=== PATIENT | male | born 1990 | race Caucasian/White ===

== ENCOUNTER 2016-11-29 20:06 | Emergency (ER) | payer SELFPAY ==
[2016-11-29 20:19] VITALS: BMI 45.8
--- NOTE | 2016-11-29 21:24 | DR.GENAD ---
HPI - PCP Primary Care Physician: NFD - Complaint/Symptoms Chief Complaint Doctors Comments: Patient complains of left foot and leg pain with wart at the bottom of his foot that he tried to cut out but it came back worst than the first time. States he has been having problems walking due to the pain in his foot. States he has been feeling dizzy, fatigue, no energy, with problems walking on his left foot. He denies fever, chills, cold, cough or chest pain. States he does not have a local doctor and he is not taking any current medicines. states his left leg has been swelling more recently and he think it is from his foot. Chief Complaint:: LEFT FOOT PAIN LEFT LEG STAYS SWOLLEN PATIENT STATES, " PEOPLE SAY IT COULD BE A SEED WART OR PLANTAR WART." PATIENT STATED," I PULLED ONE OUT ALREADY." Self Treatment fo Chief Complaint: PULLED ONE WART OUT. TRIED A FREEZE KIT, TYLENOL FOR PAIN - Nurses notes reviewed Nurses Notes Review: Yes - Source History Provided: Patient - Mode of Arrival Mode of Arrival: Ambulatory - Timing Onset of Chief Complaint: 10/09/16 Came on: Gradually - Duration Duration: Constant How lon Duration: Weeks - Location Location: left foot - Severity Severity: Moderate - Modifying Factors Worsens:: walking Improves:: nothing PMH - PMH Past Medical History: No Past Surgical History: Yes Surgical History: Ortho Surgery - Family History History of Family Medical Conditions: Yes Family Medical History: Diabetes Mellitus, Cancer, [place], Heart Failure, Hypertension Family Medical History Comment: CVA - Social History Does patient currently use any type of tobacco product: Yes Have you used tobacco products in the last 12 months: Yes Type of Tobacco Use: None Does any household member use tobacco: No Alcohol Use: Occasionally Do you use any recreational Drugs:: No Lives With: Significant Other Lives Where: Home - infectious screening In the last 2 months have you had wt loss of >10#?: NO Have you had fever, night sweats or hemotysis?: No Have you traveled outside the country in the last 6 months?: No Isolation: Standard ROS - Review of Systems Constitutional: No Symptoms Reported, Weakness, Fatigue. negative: See HPI, Chills, Diaphoresis, Fever, Malaise, Irritable, Loss of Appetite, Other Eyes: No Symptoms Reported. negative: See HPI, Eye Pain, Blurred Vision, Tearing, Discharge, Photophobia, Diplopia, Other ENTM: No Symptoms Reported Respiratoy: No Symptoms Reported Cardiovascular: No Symptoms Reported. negative: See HPI, Chest Pain, Edema, Palpitations, Syncope, Cyanosis, Skin Mottling, Other Gastrointestinal/Abdominal: No Symptoms Reported. negative: See HPI, Abdominal Pain, Constipation, Diarrhea, Nausea, Vomiting, Food Intolerance, Other Genitourinary: No Symptoms Reported Neurological: No Symptoms Reported, Dizziness, Problems Walking Musculoskeletal: No Symptoms Reported, Left, Foot Integumentary: No Symptoms Reported, Lesions (warts bottom left foot) Hematologic/Lymphatic: No Symptoms Reported Endocrine: No Symptoms Reported Psychiatric: No Symptoms Reported PE - Vital Signs Vitals: Temperature 97.7 F Pulse Rate 94 Respiratory Rate 18 Blood Pressure 172/88 O2 Sat by Pulse Oximetry 99 - General Limitations: No Limitations General Appearance: Alert, In No Apparent Distress - Head Head Exam: Normal Inspection, Atraumatic, Normocephalic - Eyes Eye exam: Normal Appearance, PERRL, EOMI. negative: Scleral Icterus, Conjunctival Injection, Nystagmus, Miosis, Mydrasis, Periorbital Swelling, Periorbital Tenderness, Other - ENT ENT Exam: Normal Exam, Normal Oropharynx, Normal External Ear Exam, Mucous Membranes Moist, TM's Normal Bilaterally External Ear Exam: Normal External Inspection TM/Canal Exam: Bilateral Normal Nose Exam: Normal Nose Exam Mouth Exam: Normal Inspection Throat Exam: Normal Inspection - Neck Neck Exam: Normal Inspection, Full ROM, Trachea Midline. negative: Tenderness, Meningismus, Lymphadenopathy, Thyromegaly, Other - Chest Chest Inspection: Normal Inspection, Symmetric Chest Wall Rise - Respiratory Respiratory Exam: Normal Lung Sounds Bilat Respiratory Exam: Bilateral Clear to Auscultation - Cardiovascular Cardiovascular Exam: Regular Rate, Normal Rhythm, Normal Heart Sounds - Abdominal Exam Abdominal Exam: Normal Inspection, Normal Bowel Sounds, Soft Abdominal Tenderness: negative: RUQ, RLQ, LUQ, LLQ, Epigastrium, Suprapubic, Diffuse, Mild, Moderate, Severe, Other - Extremities Extremities Exam: Normal Inspection, Full ROM, Tenderness, Normal Capillary Refill. negative: Joint Swelling (left foot with two small warts plantar surface proximal heel;no erythema or discharge) - Back Back Exam: Normal Inspection, Full ROM - Neurologic Neurological Exam: Alert, Oriented X3, CN II-XII Intact, Reflexes Normal. negative: Normal Gait (gait not tested) - Psychiatric Psychiatric Exam: Normal Affect, Normal Mood - Skin Skin Exam: Warm, Dry, Intact, Normal Color ROR - Labs Reviewed Laboratory Results Reviewed?: Yes (all labs and x-ray results reviewed and discussed with patient) Result Diagrams: 11/29/16 21:20 11/29/16 21:20 Laboratory: WBC 8.3 X10^3/uL (3.6-10.0) 11/29/16 21:20 RBC 5.42 X10^6/uL (4.7-6.0) 11/29/16 21:20 Hgb 16.2 g/dL (13.5-18.0) 11/29/16 21:20 Hct 46.5 % (42.0-54.0) 11/29/16 21:20 MCV 85.9 fL (80.0-100.0) 11/29/16 21:20 MCH 29.9 pg (27.0-34.0) 11/29/16 21:20 MCHC 34.8 g/dL (33.0-35.0) 11/29/16 21:20 RDW 12.9 % (11.6-16.5) 11/29/16 21:20 Plt Count 195 X10^3/uL (150.0-450.0) 11/29/16 21:20 MPV 9.3 fL (7.4-11.0) 11/29/16 21:20 Neut % 67.7 % (42.0-75.0) 11/29/16 21:20 Lymph % 25.8 % (21.0-51.0) 11/29/16 21:20 [place] % 4.0 % (0.0-13.0) 11/29/16 21:20 Eos % 1.3 % (0.9-2.9) 11/29/16 21:20 Baso % 1.2 % (0.2-1.0) H 11/29/16 21:20 Neut # 5.6 x10^3/uL (2.2-4.8) H 11/29/16 21:20 Lymph # 2.1 X10^3/uL (1.3-2.9) 11/29/16 21:20 [place] # 0.3 x10^3/uL (0.3-0.8) 11/29/16 21:20 Eos # 0.1 x10^3/uL (0.0-0.2) 11/29/16 21:20 Baso # 0.1 X10^3/uL (0.0-0.1) 11/29/16 21:20 Absolute Nucleated RBC 0.1 /100WBC 11/29/16 21:20 D-Dimer < 100 ng/mL (0-400) 11/29/16 21:20 Sodium 139 mmol/L (136-145) 11/29/16 21:20 Corrected Sodium TNP 11/29/16 21:20 Potassium 3.9 mmol/L (3.5-5.1) 11/29/16 21:20 Chloride 104 mmol/L (98-107) 11/29/16 21:20 Carbon Dioxide 27.7 mmol/L (21-32) 11/29/16 21:20 BUN 14 mg/dL (7-18) 11/29/16 21:20 Creatinine 1.20 mg/dL (0.70-1.30) 11/29/16 21:20 Est GFR (MDRD) Af Amer > 60 (>60) 11/29/16 21:20 Est GFR (MDRD) Non-Af > 60 (>60) 11/29/16 21:20 Glucose 96 mg/dL (65-99) 11/29/16 21:20 Calcium 8.8 mg/dL (8.5-10.1) 11/29/16 21:20 Corrected Calcium TNP 11/29/16 21:20 Magnesium 1.7 mg/dL (1.7-2.9) 11/29/16 21:20 Total Bilirubin 0.30 mg/dL (0.2-1.0) 11/29/16 21:20 AST 24 Units/L (15-37) 11/29/16 21:20 ALT 54 Units/L (12-78) 11/29/16 21:20 Alkaline Phosphatase 78 Units/L (46-116) 11/29/16 21:20 Total Protein 7.8 g/dL (6.4-8.2) 11/29/16 21:20 Albumin 4.0 g/dL (3.4-5.0) 11/29/16 21:20 Globulin 3.8 g/dL (2.5-4.5) 11/29/16 21:20 Albumin/Globulin Ratio 1.1 Ratio (1.1-2.1) 11/29/16 21:20 - XRAY XRAY Interpreted by: Radiologist (left foot: Normal left foot x-ray exam.) - Diagnosis Discharge Problem: Left foot pain, Plantar wart of left foot, early cellulitis of foot - Discharge Plan Disposition: 01 HOME, SELF-CARE Condition: Stable Prescriptions: Cephalexin [KEFLEX CAP 500 MG *] 500 mg PO TID #30 cap Tramadol HCl [ULTRAM 50 MG *] 50 mg PO BID PRN #18 tab PRN Reason: Pain - Follow ups/Referrals Follow ups/Referrals: NFD,None [Primary Care Provider] - 3 days BRIGITTE RODRIGUEZ [STAFF PHYSICIAN] - 3 days - Instructions Instructions: Plantar Warts, Foot Sprain, Hypertension, Cellulitis
[2016-11-29 22:01] LABS: BASOPHILS # (AUTO) 0.1 X10^3/uL (0.0-0.1); BASOPHILS % (AUTO) 1.2 % (0.2-1.0); EOSINOPHILS # (AUTO) 0.1 x10^3/uL (0.0-0.2); EOSINOPHILS % (AUTO) 1.3 % (0.9-2.9); HEMATOCRIT 46.5 % (42.0-54.0); HEMOGLOBIN 16.2 g/dL (13.5-18.0); LYMPHOCYTES # (AUTO) 2.1 X10^3/uL (1.3-2.9); LYMPHOCYTES % (AUTO) 25.8 % (21.0-51.0); MEAN CORPUSCULAR HEMOGLOBIN 29.9 pg (27.0-34.0); MEAN CORPUSCULAR HGB CONC 34.8 g/dL (33.0-35.0); MEAN CORPUSCULAR VOLUME 85.9 fL (80.0-100.0); MEAN PLATELET VOLUME 9.3 fL (7.4-11.0); MONOCYTES # (AUTO) 0.3 x10^3/uL (0.3-0.8); NEUTROPHILS # (AUTO) 5.6 x10^3/uL (2.2-4.8); NEUTROPHILS % (AUTO) 67.7 % (42.0-75.0); PLATELET COUNT 195 X10^3/uL (150.0-450.0); RED BLOOD COUNT 5.42 X10^6/uL (4.7-6.0); RED CELL DISTRIBUTION WIDTH 12.9 % (11.6-16.5); WHITE BLOOD COUNT 8.3 X10^3/uL (3.6-10.0)
[2016-11-29 22:03] LABS: ALANINE AMINOTRANSFERASE 54 Units/L (12-78); ALKALINE PHOSPHATASE 78 Units/L (46-116); ASPARTATE AMINO TRANSFERASE 24 Units/L (15-37); BLOOD UREA NITROGEN 14 mg/dL (7-18); CALCIUM 8.8 mg/dL (8.5-10.1); CARBON DIOXIDE 27.7 mmol/L (21-32); CHLORIDE 104 mmol/L (98-107); GLUCOSE 96 mg/dL (65-99); MAGNESIUM 1.7 mg/dL (1.7-2.9); SODIUM 139 mmol/L (136-145); TOTAL PROTEIN 7.8 g/dL (6.4-8.2); eGFR BLACK RACES > 60 (>60); eGFR NON BLACK RACES > 60 (>60)
--- NOTE | 2016-11-29 22:06 | RAD ---
EXAM: Left foot x-ray INDICATION: Pain COMPARISION: None TECHNIQUE: AP, lateral, and oblique, three views FINDINGS: No acute fracture or dislocation. The joint spaces are preserved. The soft tissues are normal. No ra diopaque foreign body. IMPRESSION: Normal left foot x-ray exam Reported By:
[2016-11-29 22:07] LABS: D DIMER < 100 ng/mL (0-400)
[2016-11-29] MEDS ORDERED: ULTRAM PO ONE (22:38)
[2016-11-29] MEDS ORDERED: KEFLEX CAP 500 MG PO ONE ×3 (22:39→22:43)
[2016-11-29] MEDS ORDERED: ULTRAM ONE (22:43)
[2016-11-29 23:29] VITALS: BP 141/94
== END 2016-11-29 23:26 | disposition home or self-care (01) ==
LOC: ER 20:06
DX: L03.116 Cellulitis of left lower limb (principal); B07.0 Plantar wart; M79.672 Pain in left foot
CPT/HCPCS: 36415; 73630; 80053; 83735; 85025; 85378; 99283

== ENCOUNTER 2017-08-09 18:24 | Observation (INO) | payer SELFPAY ==
[2017-08-09 18:41] VITALS: BMI 50.0
--- NOTE | 2017-08-09 18:48 | DR.ABDMALE ---
HPI - Time seen Time seen: 18:44 - Complaint Chief Complaint Doctors Comments: Patient presented with complaint of abdominal pain, vomiting and rectal bleeding. He states that these symptoms have been ongoing for two days. The abdominal pain is 10/10, sharp and continuous since 0500. Chief Complaint:: PT TO [facility] ER AND PT C/O PASSING BLOOD IN HIS STOOL THAT IS BRIGHT RED THAT STARTED ON ,,,, AND ABD PAIN,,,THIS AM PT HAS A HX HEMEROIDS ,,,, - Mode of arrival Mode of Arrival: EMS - Timing Onset of Chief Complaint: 08/09/17 PMH - PMH Past Medical History: No Past Surgical History: No Surgical History: Ortho Surgery - Family History History of Family Medical Conditions: No Family Medical History: Diabetes Mellitus, Cancer, [place], Heart Failure, Hypertension - Social History Does patient currently use any type of tobacco product: No Have you used tobacco products in the last 12 months: No Type of Tobacco Use: None Does any household member use tobacco: No Alcohol Use: None Do you use any recreational Drugs:: No Lives With: Family Lives Where: Home - infectious screening In the last 2 months have you had wt loss of >10#?: NO Have you had fever, night sweats or hemotysis?: No Have you traveled outside the country in the last 6 months?: No Isolation: Standard ROS - Review of Systems Eyes: No Symptoms Reported ENTM: No Symptoms Reported Respiratoy: No Symptoms Reported Cardiovascular: No Symptoms Reported Gastrointestinal/Abdominal: Abdominal Pain, Nausea, Vomiting Genitourinary: No Symptoms Reported Neurological: No Symptoms Reported Musculoskeletal: No Symptoms Reported Integumentary: No Symptoms Reported Hematologic/Lymphatic: No Symptoms Reported Endocrine: No Symptoms Reported Psychiatric: No Symptoms Reported All Other Systems: Reviewed and Negative PE - Vital Signs Vital Signs: Temp Pulse Resp BP BP Pulse Ox 08/09/17 18:30 98.9 F 80 20 140/91 99 11/29/16 23:05 141/94 141/94 - General General Appearance: Alert, In No Apparent Distress - Head Head Exam: Normal Inspection, Atraumatic - Eyes Eye exam: Normal Appearance, PERRL, EOMI - ENT ENT Exam: Normal Exam - Neck Neck Exam: Normal Inspection, Full ROM - Chest Chest Inspection: Normal Inspection, Symmetric Chest Wall Rise - Respiratory Respiratory Exam: Normal Lung Sounds Bilat Respiratory Exam: Bilateral Clear to Auscultation - Cardiovascular Cardiovascular Exam: Regular Rate, Normal Rhythm - Abdominal Exam Abdominal Exam: Normal Inspection, Tenderness, Dimnished Bowel Sounds Abdominal Tenderness: RLQ - Rectal Rectal Exam: Heme (+) Stool - Back Back Exam: Normal Inspection - Extremeties Extremities Exam: Normal Inspection, Full ROM - Neurologic Neurological Exam: Alert, Oriented X3, CN II-XII Intact - Psychiatric Psychiatric Exam: Normal Affect - Skin Skin Exam: Warm, Dry Course - Treatment Treatment: see orders - Reevaluation 1st: Improved - Consultation Called: 23:25 (Dr Henderson agreed to consult on patient) ROR - Labs Reviewed Result Diagrams: 08/09/17 19:01 08/09/17 19: Laboratory: WBC 17.0 X10^3/uL (3.6-10.0) H 08/09/17 19: RBC 5.24 X10^6/uL (4.7-6.0) 08/09/17 19: Hgb 15.8 g/dL (13.5-18.0) 08/09/17 19: Hct 45.9 % (42.0-54.0) 08/09/17 19: MCV 87.5 fL (80.0-100.0) 08/09/17 19: MCH 30.2 pg (27.0-34.0) 08/09/17 19: MCHC 34.5 g/dL (33.0-35.0) 08/09/17 19: RDW 12.5 % (11.6-16.5) 08/09/17 19: Plt Count 204 X10^3/uL (150.0-450.0) 08/09/17 19: Plt Count Comment Adequate (ADEQUATE) 08/09/17 19: MPV 10.0 fL (7.4-11.0) 08/09/17 19: Neut % 90.6 % (42.0-75.0) H 08/09/17 19: Lymph % 6.6 % (21.0-51.0) L 08/09/17 19: [place] % 2.6 % (0.0-13.0) 08/09/17 19: Eos % 0.1 % (0.9-2.9) L 08/09/17 19:01 Baso % 0.1 % (0.2-1.0) L 08/09/17 19: Neut # 15.4 x10^3/uL (2.2-4.8) H 08/09/17 19:01 Lymph # 1.1 X10^3/uL (1.3-2.9) L 08/09/17 19:01 [place] # 0.5 x10^3/uL (0.3-0.8) 08/09/17 19: Eos # 0.0 x10^3/uL (0.0-0.2) 08/09/17 19:01 Baso # 0.0 X10^3/uL (0.0-0.1) 08/09/17 19: Absolute Nucleated RBC 0.2 /100WBC 08/09/17 19: Total Counted 100 08/09/17 19:01 Neutrophils % (Manual) 78 % (39-76) H 08/09/17 19: Band Neutrophils % 14 % (0-10) H 08/09/17 19: Lymphocytes % (Manual) 5 % (13-43) L 08/09/17 19:01 Monocytes % (Manual) 3 % (4-9) L 08/09/17 19:01 Plt Morphology Comment Normal (NORMAL) 08/09/17 19: RBC Morphology Normal (NORMAL) 08/09/17 19: Sodium 138 mmol/L (136-145) 08/09/17 19: Corrected Sodium 138 mmol/L (136-145) 08/09/17 19: Potassium 3.6 mmol/L (3.5-5.1) 08/09/17 19: Chloride 100 mmol/L (98-107) 08/09/17 19: Carbon Dioxide 23.6 mmol/L (21-32) 08/09/17 19: BUN 10 mg/dL (7-18) 08/09/17 19: Creatinine 0.83 mg/dL (0.70-1.30) 08/09/17 19:01 Est GFR (MDRD) Af Amer > 60 (>60) 08/09/17 19: Est GFR (MDRD) Non-Af > 60 (>60) 08/09/17 19: Glucose 117 mg/dL (65-99) H 08/09/17 19:01 Calcium 9.2 mg/dL (8.5-10.1) 08/09/17 19: Corrected Calcium TNP 08/09/17 19: Total Bilirubin 0.60 mg/dL (0.2-1.0) 08/09/17 19:01 AST 26 Units/L (15-37) 08/09/17 19: ALT 60 Units/L (12-78) 08/09/17 19:01 Alkaline Phosphatase 67 Units/L (46-116) 08/09/17 19:01 C-Reactive Protein 7.30 mg/L (0-3.0) H 08/09/17 19: Total Protein 7.8 g/dL (6.4-8.2) 08/09/17 19: Albumin 3.9 g/dL (3.4-5.0) 08/09/17 19: Globulin 3.9 g/dL (2.5-4.5) 08/09/17 19: Albumin/Globulin Ratio 1.0 Ratio (1.1-2.1) L 08/09/17 19:01 Amylase 41 Units/L (25-115) 08/09/17 19: Lipase 128 Units/L (73-393) 08/09/17 19:01 Stool Description Ifob collection tube 08/09/17 18:51 Stl Occult Blood (IFOB) Positive (NEGATIVE) A 08/09/17 18:51 Stool for White Cells Cancelled 08/09/17 18:51 - XRAY XRAY Interpreted by: Radiologist (CT Abd/Pel: The liver is diffusely hypoattenuating, compatible with fatty infiltration. The gallbladder, spleen, pancreas,adrenals and kidneys are unremarkable. k The appendix is moderately dilated, measuring up to 9mm in diameter with trace surrounding inflammatory stranding. The remaining GI tract, including the rectum is within normal limits. The IVC, abdominal aorta,urinary bladder and prostate are normal. A few prominent and likely reactive reactive right lower quadrant lymph nodes are present. No free air, free fluid or lymphadenopathy is identified. Impression: ..findings suggestive for uncomplicated acute appendicitis. Clinical correlation for right lower quadrant tenderness as well as surgical consultation is advised, if clinically warranted. Hepatic steatosis.) - Diagnosis Discharge Problem: Acute appendicitis Qualifiers: Acute appendicitis type: with localized peritonitis Qualified Code(s): K35.3 - Acute appendicitis with localized peritonitis - Discharge Plan Condition: Stable - Follow ups/Referrals Follow ups/Referrals: NFD,None [Primary Care Provider] - 3 days - Instructions
[2017-08-09] MEDS ORDERED: MORPHINE SULFATE INJ 4 MG IVP ONE (18:53)
[2017-08-09] MEDS ORDERED: NS 1000 ML 1,000 ML IV ONE (18:57)
[2017-08-09] MEDS ORDERED: MORPHINE SULFATE INJ 4 MG ONE (19:00)
[2017-08-09] MEDS ORDERED: NS 1000 ML 1,000 ML ONE ×2 (19:00→20:06)
[2017-08-09 19:26] LABS: BASOPHILS % (AUTO) 0.1 % (0.2-1.0); EOSINOPHILS % (AUTO) 0.1 % (0.9-2.9); HEMATOCRIT 45.9 % (42.0-54.0); HEMOGLOBIN 15.8 g/dL (13.5-18.0); LYMPHOCYTES # (AUTO) 1.1 X10^3/uL (1.3-2.9); LYMPHOCYTES % (AUTO) 6.6 % (21.0-51.0); MEAN CORPUSCULAR HEMOGLOBIN 30.2 pg (27.0-34.0); MEAN CORPUSCULAR HGB CONC 34.5 g/dL (33.0-35.0); MEAN CORPUSCULAR VOLUME 87.5 fL (80.0-100.0); MONOCYTES # (AUTO) 0.5 x10^3/uL (0.3-0.8); MONOCYTES % (AUTO) 2.6 % (0.0-13.0); NEUTROPHILS # (AUTO) 15.4 x10^3/uL (2.2-4.8); NEUTROPHILS % (AUTO) 90.6 % (42.0-75.0); PLATELET COUNT 204 X10^3/uL (150.0-450.0); RED BLOOD COUNT 5.24 X10^6/uL (4.7-6.0); RED CELL DISTRIBUTION WIDTH 12.5 % (11.6-16.5)
[2017-08-09 19:27] LABS: ALANINE AMINOTRANSFERASE 60 Units/L (12-78); ALBUMIN 3.9 g/dL (3.4-5.0); ALKALINE PHOSPHATASE 67 Units/L (46-116); AMYLASE 41 Units/L (25-115); ASPARTATE AMINO TRANSFERASE 26 Units/L (15-37); BLOOD UREA NITROGEN 10 mg/dL (7-18); CALCIUM 9.2 mg/dL (8.5-10.1); CARBON DIOXIDE 23.6 mmol/L (21-32); CHLORIDE 100 mmol/L (98-107); COR NA(FOR HYPERGLY) 138 mmol/L (136-145); CREATININE 0.83 mg/dL (0.70-1.30); LIPASE 128 Units/L (73-393); SODIUM 138 mmol/L (136-145); TOTAL PROTEIN 7.8 g/dL (6.4-8.2); eGFR BLACK RACES > 60 (>60); eGFR NON BLACK RACES > 60 (>60)
[2017-08-09 19:35] LABS: BAND NEUTROPHILS % 14 % (0-10); PLATELET MORPHOLOGY COMMENT NORMAL (NORMAL)
[2017-08-09] MEDS ORDERED: DILAUDID INJ IVP ONE ×2 (19:44→22:56)
[2017-08-09] MEDS ORDERED: DILAUDID INJ ONE ×2 (19:48→22:57)
[2017-08-09] MEDS ORDERED: NS 25 ML IV 25 ML IV ONE (20:27)
[2017-08-09] MEDS ORDERED: NS 1000 ML 1,000 ML IV SCH (21:00)
--- NOTE | 2017-08-09 22:45 | RAD ---
HISTORY: Chest and abdominal pain Study: Single-view of the chest Comparison: None Technique: Single view of the chest Findings: The cardiac silhouette is at the upper limits of normal. Increased perihilar markings mild bronchial thickening are noted atelectasis and/or infiltrate are noted within the right lower lobe. IMPRESSION: Increased interstitial markings and bronchial wall thickening with suspected right basilar atelectasi s and/or infiltrate. Correlate clinically. Reported By:
--- NOTE | 2017-08-09 22:58 | CT ---
CT abdomen and pelvis with contrast Indication: Bright red stool, history of hemorrhoids, abdominal pain Technique: Helical CT images of the abdomen and pelvis were obtained with IV contrast. Reformatted im ages in the coronal and sagittal planes were also generated for review. Comparison: None Findings: Lung bases are clear. No aggressive osseous lesions are identified. The liver is diffusely hypoattenuating, compatible with fatty infiltration. The gallbladder, spleen, pancreas, adrenals and kidneys are unremarkable. The appendix is the moderately dilated, measuring up to 9 mm in diameter with trace surrounding inflammatory stranding. The remaining GI tract, including the rectum is within normal limits. The IVC, abdominal aorta, urinary bladder and prostate are lida l. A few prominent and likely reactive right lower quadrant lymph nodes are present. No free air, christophe e fluid or lymphadenopathy is identified. Impression: Imaging findings suggestive for uncomplicated acute appendicitis. Clinical correlation for right lowe r quadrant tenderness as well as surgical consultation is advised, if clinically warranted. Hepatic steatosis Reported By:
[2017-08-09] MEDS ORDERED: INVANZ INJ 1 GM VIAL 1 GM in NS 50 ML IV + SPIKE MINIBAG* 50 ML IV ONE (23:59)
[2017-08-10] MEDS: MARCAINE 0.25% INJ ONE ×2 (00:10→01:46)
[2017-08-10] MEDS ORDERED: DILAUDID INJ ONE (00:24)
[2017-08-10] MEDS ORDERED: FENTANYL INJ 250 mcg ONE (00:24)
[2017-08-10] MEDS ORDERED: NS 50 ML IV 50 ML IV ONE (00:26)
[2017-08-10] MEDS ORDERED: INVANZ INJ 1 GM VIAL ONE (00:26)
[2017-08-10] MEDS ORDERED: LR 1000 ML IV 1,000 ML IV ONE (00:39)
[2017-08-10] MEDS ORDERED: NS IRRIGATION 1000 ML 1,000 ML IR ONE (01:34)
[2017-08-10] MEDS ORDERED: NS IRRIGATION 3000 ML 3,000 ML IR ONE (01:34)
[2017-08-10] MEDS ORDERED: FENTANYL INJ 100 mcg ONE (01:36)
[2017-08-10] MEDS ORDERED: REGLAN INJ 10 MG VIAL IVP PRN (02:06)
[2017-08-10] MEDS ORDERED: ZOFRAN INJ 4 MG VIAL IVP PRN ×2 (02:06→02:30)
[2017-08-10] MEDS ORDERED: DILAUDID INJ IVP PRN ×2 (02:06→02:29)
[2017-08-10] MEDS ORDERED: BENADRYL INJ 50 MG VIAL IVP PRN (02:06)
[2017-08-10] MEDS ORDERED: PHENERGAN INJ 25 MG IVP PRN (02:06)
[2017-08-10] MEDS ORDERED: NORCO 5/325 MG TAB PO PRN ×2 (02:26→02:27)
[2017-08-10] MEDS ORDERED: LR 1000 ML IV 1,000 ML IV SCH (03:00)
--- NOTE | 2017-08-10 07:09 | PCM.PROG ---
Progress Note - Progress Note for Day of Date: 08/10/17 - Subjective Subjective: Patient feels well. Only slightly sore on right. Preop pain has resolved. He is tolerating clears. He has voided. - Past Medical Family Social History Past Med/Fam/Surg Hx: No changes since H&P Allergies: Allergies ibuprofen [From Motrin] Allergy (Verified 08/09/17 18:41) - Review of Systems ROS: No change since H&P - Vital Signs and I&O's Vital Signs: Temperature 98.3 F Pulse Rate [Left] 91 Pulse Rate 101 Respiratory Rate 16 Blood Pressure [Right Arm] 123/72 Blood Pressure 144/77 O2 Sat by Pulse Oximetry 97 Intake and Output: Intake & Output 08/07/17 08/08/17 08/09/17 08/10/17 11:59 11:59 11:59 11:59 Intake Total 600 Output Total 1050 Balance -450 - Physical Exam Oriented: Normal Respiratory: Normal Cardiovascular: Normal Palpation: Normal Tenderness: Normal, Other (dressings intact on port sites x 3) Skin: Normal Psychiatric: Normal Mood Description: Calm Speech Pattern: Clear, Appropriate - Laboratory and Diagnostics Result Diagrams: 08/09/17 19:01 08/09/17 19:01 Labs: Laboratory WBC 17.0 X10^3/uL (3.6-10.0) H 08/09/17 19: RBC 5.24 X10^6/uL (4.7-6.0) 08/09/17 19:01 Hgb 15.8 g/dL (13.5-18.0) 08/09/17 19: Hct 45.9 % (42.0-54.0) 08/09/17 19: MCV 87.5 fL (80.0-100.0) 08/09/17 19:01 MCH 30.2 pg (27.0-34.0) 08/09/17 19: MCHC 34.5 g/dL (33.0-35.0) 08/09/17 19: RDW 12.5 % (11.6-16.5) 08/09/17 19: Plt Count 204 X10^3/uL (150.0-450.0) 08/09/17 19: Plt Count Comment Adequate (ADEQUATE) 08/09/17 19:01 MPV 10.0 fL (7.4-11.0) 08/09/17 19: Neut % 90.6 % (42.0-75.0) H 08/09/17 19: Lymph % 6.6 % (21.0-51.0) L 08/09/17 19:01 [place] % 2.6 % (0.0-13.0) 08/09/17 19: Eos % 0.1 % (0.9-2.9) L 08/09/17 19:01 Baso % 0.1 % (0.2-1.0) L 08/09/17 19: Neut # 15.4 x10^3/uL (2.2-4.8) H 08/09/17 19: Lymph # 1.1 X10^3/uL (1.3-2.9) L 08/09/17 19:01 [place] # 0.5 x10^3/uL (0.3-0.8) 08/09/17 19:01 Eos # 0.0 x10^3/uL (0.0-0.2) 08/09/17 19:01 Baso # 0.0 X10^3/uL (0.0-0.1) 08/09/17 19: Absolute Nucleated RBC 0.2 /100WBC 08/09/17 19: Total Counted 100 08/09/17 19: Neutrophils % (Manual) 78 % (39-76) H 08/09/17 19:01 Band Neutrophils % 14 % (0-10) H 08/09/17 19:01 Lymphocytes % (Manual) 5 % (13-43) L 08/09/17 19:01 Monocytes % (Manual) 3 % (4-9) L 08/09/17 19:01 Plt Morphology Comment Normal (NORMAL) 08/09/17 19: RBC Morphology Normal (NORMAL) 08/09/17 19: Sodium 138 mmol/L (136-145) 08/09/17 19: Corrected Sodium 138 mmol/L (136-145) 08/09/17 19: Potassium 3.6 mmol/L (3.5-5.1) 08/09/17 19: Chloride 100 mmol/L (98-107) 08/09/17 19:01 Carbon Dioxide 23.6 mmol/L (21-32) 08/09/17 19:01 BUN 10 mg/dL (7-18) 08/09/17 19:01 Creatinine 0.83 mg/dL (0.70-1.30) 08/09/17 19:01 Est GFR (MDRD) Af Amer > 60 (>60) 08/09/17 19:01 Est GFR (MDRD) Non-Af > 60 (>60) 08/09/17 19:01 Glucose 117 mg/dL (65-99) H 08/09/17 19:01 Calcium 9.2 mg/dL (8.5-10.1) 08/09/17 19: Corrected Calcium TNP 08/09/17 19: Total Bilirubin 0.60 mg/dL (0.2-1.0) 08/09/17 19:01 AST 26 Units/L (15-37) 08/09/17 19: ALT 60 Units/L (12-78) 08/09/17 19:01 Alkaline Phosphatase 67 Units/L (46-116) 08/09/17 19:01 C-Reactive Protein 7.30 mg/L (0-3.0) H 08/09/17 19:01 Total Protein 7.8 g/dL (6.4-8.2) 08/09/17 19:01 Albumin 3.9 g/dL (3.4-5.0) 08/09/17 19: Globulin 3.9 g/dL (2.5-4.5) 08/09/17 19:01 Albumin/Globulin Ratio 1.0 Ratio (1.1-2.1) L 08/09/17 19:01 Amylase 41 Units/L (25-115) 08/09/17 19: Lipase 128 Units/L (73-393) 08/09/17 19:01 Stool Description Ifob collection tube 08/09/17 18:51 Stl Occult Blood (IFOB) Positive (NEGATIVE) A 08/09/17 18:51 Stool for White Cells Cancelled 08/09/17 18:51 Tissue Pathology To follow 08/10/17 02:49 - Plan (1) Acute appendicitis Status: Resolved Qualifiers: Acute appendicitis type: with localized peritonitis Qualified Code(s): K35.3 - Acute appendicitis with localized peritonitis Plan: Patient is doing well s/p lap appy. Will d/c home. Discussed with him homegoing instructions. Will follow-up at [facility] on Aug.21. No lifting > 20 # and no return to work until after seen in clinic.
[2017-08-10 11:43] VITALS: BP 121/63
[2017-08-10] MEDS ORDERED: ZOFRAN INJ 4 MG VIAL ONE (13:01)
[2017-08-10] MEDS ORDERED: NORCURON INJ 10 MG VIAL ONE (13:01)
[2017-08-10] MEDS ORDERED: NEOSTIGMINE INJ ONE (13:01)
[2017-08-10] MEDS ORDERED: QUELICIN (OR ANECTINE) ONE (13:01)
[2017-08-10] MEDS ORDERED: XYLOCAINE 2 % (PLAIN) ONE (13:01)
[2017-08-10] MEDS ORDERED: VERSED ONE (13:01)
[2017-08-10] MEDS ORDERED: SUPRANE IN ONE (13:01)
[2017-08-10] MEDS ORDERED: DIPRIVAN VIAL ONE (13:01)
[2017-08-10] MEDS ORDERED: ROBINUL ONE (13:01)
[2017-08-10] MEDS ORDERED: LTA KIT LIDOCAINE 4% ONE (13:01)
== END 2017-08-10 10:55 | disposition home or self-care (01) ==
LOC: ER 18:24 → INTOOBSV 08-10 00:06 → MED/SURG 08-10 00:06
PROVIDERS: ADMIT Obstetrics & Gynecology Obstetrics; ATTEND Obstetrics & Gynecology Obstetrics
PROC: 0DTJ4ZZ Resection of Appendix, Percutaneous Endoscopic Approach (ICD-10-PCS; principal; 2017-08-10 00:30)
DX: K35.3 Acute appendicitis with localized peritonitis (principal); K62.5 Hemorrhage of anus and rectum; R10.84 Generalized abdominal pain; R11.2 Nausea with vomiting, unspecified; K76.0 Fatty (change of) liver, not elsewhere classified; D72.828 Other elevated white blood cell count
CPT/HCPCS: 36415; 71010; 74177; 80053; 82150; 82270; 83690; 85025; 86140; 94640; 96365; 96367; 96372; 96374; 96375; 99283; 99284; A4216; A4222; S0020; G0378; J0330; J1170; J1335; J2001; J2250; J2270; J2405; J2710; J3010; J3490; J7120

== ENCOUNTER 2019-02-25 21:35 | Observation (INO) ==
[2019-02-25 23:29] LABS: BASOPHILS % (AUTO) 0.5 % (0.2-1.0); EOSINOPHILS # (AUTO) 0.1 x10^3/uL (0.0-0.2); EOSINOPHILS % (AUTO) 3.2 % (0.9-2.9); HEMATOCRIT 39.3 % (42.0-54.0); HEMOGLOBIN 13.5 g/dL (13.5-18.0); LYMPHOCYTES # (AUTO) 2.4 X10^3/uL (1.3-2.9); LYMPHOCYTES % (AUTO) 57.2 % (21.0-51.0); MEAN CORPUSCULAR HGB CONC 34.3 g/dL (33.0-35.0); MEAN CORPUSCULAR VOLUME 90.2 fL (80.0-100.0); MEAN PLATELET VOLUME 8.4 fL (7.4-11.0); MONOCYTES # (AUTO) 0.3 x10^3/uL (0.3-0.8); MONOCYTES % (AUTO) 7.6 % (0.0-13.0); NEUTROPHILS # (AUTO) 1.3 x10^3/uL (2.2-4.8); NEUTROPHILS % (AUTO) 31.5 % (42.0-75.0); PLATELET COUNT 192 X10^3/uL (150.0-450.0); RED BLOOD COUNT 4.35 X10^6/uL (4.7-6.0); RED CELL DISTRIBUTION WIDTH 14.8 % (11.6-16.5); WHITE BLOOD COUNT 4.1 X10^3/uL (3.6-10.0)
[2019-02-25 23:36] LABS: BLOOD UREA NITROGEN 12 mg/dL (7-18); CALCIUM 8.7 mg/dL (8.5-10.1); CARBON DIOXIDE 26.6 mmol/L (21-32); CHLORIDE 104 mmol/L (98-107); CREATININE 0.95 mg/dL (0.70-1.30); SODIUM 141 mmol/L (136-145); TROPONIN I < 0.02 ng/mL (0-1.5); eGFR NON BLACK RACES > 60 (>60)
[2019-02-25 23:40] LABS: ALANINE AMINOTRANSFERASE 47 Units/L (12-78); ALBUMIN 3.5 g/dL (3.4-5.0); ALKALINE PHOSPHATASE 65 Units/L (46-116); ASPARTATE AMINO TRANSFERASE 30 Units/L (15-37); CREATINE KINASE 136 Units/L (39-308); CREATINE KINASE MB 1.3 ng/mL (0-4.0); TOTAL PROTEIN 7.2 g/dL (6.4-8.2)
[2019-02-25] MEDS ORDERED: NS 100 ML IV 100 ML ONE (23:59)
--- NOTE | 2019-02-26 00:04 | DR.SOBA ---
HPI Time Seen Time Seen by Provider: 02/25/19 23:51 Primary Care Physician Primary Care Physician: NFD Complaints Chief Complaint Doctors Comments: Patient is complaining of wheezing, shortness of breath, cough for the past seven days getting progressively worst with chest pain when he cough. He is complaining of left arm and neck pain earlier with left sided chest pain with feeling like a fullness is in his lungs. States the shortness of breathe is worst when he lay down at night with severe coughing. States he is a patient of Dr. Tj Whalen in [place] and he tried to see him today but they were booked and they made him an appointment for next week. He denies tobacco, alcohol or drug use. He has been wheezing but he has not had any medicines for the wheezing today. states he is only taking Prelosec for his stomach and was taking blood pressure pills but he ran out and has not taken them for 2-3 months. Chief Complaint:: PT C/O 1 WEEK HISTORY OF PROGRESSIVELY WORSENING SHORTNESS OF BREATH ASSOCIATED WITH PRODUCTIVE COUGH AND ORTHOPNEA. PT ALSO HAS HAD INTERMITTENT LEFT SIDED CHEST PAIN THAT RADIATES DOWN LEFT ARM THAT IS WORSE WITH EXERTION. PAIN IS DESCRIBED BURNING PAIN. DENIES PAIN AT PRESENT Self Treatment fo Chief Complaint: TYLENOL AND BENADRYL WITH NO RELIEF Reviewed Nurses Notes Reviewed: Yes Source History Provided: Patient Mode of Arrival Mode of Arrival: Ambulatory Timing Onset of Chief Complaint: 02/25/19 Modifying Factors Worsens:: Lying Flat Improves:: Nothing Associated Signs and Symptoms Associated Signs and Symptoms: Wheeze, Cough, Nasal Congestion and Chest Pain If Chest Pain Quality: Sharp and Burning Location: Left Upper Chest and Substernal If Cough Cough: Nonproductive PMH PMH Past Medical History: Yes Past Medical History: GERD and Hypertension Past Surgical History: Yes Surgical History: Appendectomy and Organ Transplant Family History History of Family Medical Conditions: Yes Family Medical History: Diabetes Mellitus, Cancer, ID, Coronary Artery Disease and Hypertension Social History Does patient currently use any type of tobacco product: No Have you used tobacco products in the last 12 months: No Type of Tobacco Use: None Does any household member use tobacco: No Alcohol Use: Occasionally Do you use any recreational Drugs:: No Lives With: Family Lives Where: Home infectious screening In the last 2 months have you had wt loss of >10#?: NO Have you had fever, night sweats or hemotysis?: No Have you traveled outside the country in the last 6 months?: No Isolation: Standard ROS Review of Systems Constitutional: No Symptoms Reported Eyes: No Symptoms Reported ENTM: No Symptoms Reported Respiratoy: Dry Cough, Hacking Cough, Short of Breath and Wheezing Cardiovascular: Chest Pain Gastrointestinal/Abdominal: No Symptoms Reported Genitourinary: No Symptoms Reported Neurological: No Symptoms Reported Musculoskeletal: No Symptoms Reported Integumentary: No Symptoms Reported Hematologic/Lymphatic: No Symptoms Reported Endocrine: No Symptoms Reported Psychiatric: No Symptoms Reported All Other Systems: Reviewed and Negative PE Vital Signs Vitals: Temperature 97.9 F Pulse Rate [Left Radial] 91 Pulse Rate 91 Respiratory Rate 22 Blood Pressure [Right Arm] 121/63 Blood Pressure 164/83 O2 Sat by Pulse Oximetry 97 General Limitations: No Limitations General Appearance: Alert, In No Apparent Distress and Obese Head Head Exam: Normal Inspection, Atraumatic and Normocephalic Eyes Eye exam: Normal Appearance, PERRL and EOMI ENT ENT Exam: Normal Exam, Normal Oropharynx, Normal External Ear Exam, Mucous Membranes Moist and TM's Normal Bilaterally Neck Neck Exam: Normal Inspection, Full ROM and Trachea Midline Chest Chest Inspection: Normal Inspection and Symmetric Chest Wall Rise Respiratory Respiratory Exam: Normal Lung Sounds Bilat Respiratory Exam: Bilateral: Clear to Auscultation Cardiovascular Cardiovascular Exam: Regular Rate, Normal Rhythm and Normal Heart Sounds Abdominal Exam Abdominal Exam: Normal Inspection, Normal Bowel Sounds and Soft Extremities Extremities Exam: Normal Inspection, Full ROM and Normal Capillary Refill Back Back Exam: Normal Inspection Neurologic Neurological Exam: Alert, Oriented X3, CN II-XII Intact and Reflexes Normal Psychiatric Psychiatric Exam: Normal Affect and Normal Mood Skin Skin Exam: Warm, Dry, Intact and Normal Color MDM Differential Diagnosis Differential Diagnosis: Bronchitis, COPD, Mycardial Infarction, Pneumonia and Pulmonary embolism ROR Labs Reviewed Laboratory Results Reviewed?: Yes Result Diagrams: 02/25/19 23:10 02/25/19 23:10 Laboratory: WBC 4.1 X10^3/uL (3.6-10.0) 02/25/19 23:10 RBC 4.35 X10^6/uL (4.7-6.0) L 02/25/19 23:10 Hgb 13.5 g/dL (13.5-18.0) 02/25/19 23:10 Hct 39.3 % (42.0-54.0) L 02/25/19 23:10 MCV 90.2 fL (80.0-100.0) 02/25/19 23:10 MCH 31.0 pg (27.0-34.0) 02/25/19 23:10 MCHC 34.3 g/dL (33.0-35.0) 02/25/19 23:10 RDW 14.8 % (11.6-16.5) 02/25/19 23:10 Plt Count 192 X10^3/uL (150.0-450.0) 02/25/19 23:10 MPV 8.4 fL (7.4-11.0) 02/25/19 23:10 Neut % (Auto) 31.5 % (42.0-75.0) L 02/25/19 23:10 Lymph % (Auto) 57.2 % (21.0-51.0) H 02/25/19 23:10 [place] % (Auto) 7.6 % (0.0-13.0) 02/25/19 23:10 Eos % (Auto) 3.2 % (0.9-2.9) H 02/25/19 23:10 Baso % (Auto) 0.5 % (0.2-1.0) 02/25/19 23:10 Neut # (Auto) 1.3 x10^3/uL (2.2-4.8) L 02/25/19 23:10 Lymph # (Auto) 2.4 X10^3/uL (1.3-2.9) 02/25/19 23:10 [place] # (Auto) 0.3 x10^3/uL (0.3-0.8) 02/25/19 23:10 Eos # (Auto) 0.1 x10^3/uL (0.0-0.2) 02/25/19 23:10 Baso # (Auto) 0.0 X10^3/uL (0.0-0.1) 02/25/19 23:10 Absolute Nucleated RBC 0.1 /100WBC 02/25/19 23:10 D-Dimer 1750 ng/mL (0-400) H* 02/25/19 23:10 Sodium 141 mmol/L (136-145) 02/25/19 23:10 Corrected Sodium TNP 02/25/19 23:10 Potassium 3.7 mmol/L (3.5-5.1) 02/25/19 23:10 Chloride 104 mmol/L (98-107) 02/25/19 23:10 Carbon Dioxide 26.6 mmol/L (21-32) 02/25/19 23:10 BUN 12 mg/dL (7-18) 02/25/19 23:10 Creatinine 0.95 mg/dL (0.70-1.30) 02/25/19 23:10 Est GFR (MDRD) Af Amer > 60 (>60) 02/25/19 23:10 Est GFR (MDRD) Non-Af > 60 (>60) 02/25/19 23:10 Glucose 86 mg/dL (65-99) 02/25/19 23:10 Calcium 8.7 mg/dL (8.5-10.1) 02/25/19 23:10 Corrected Calcium TNP 02/25/19 23:10 Total Bilirubin 0.40 mg/dL (0.2-1.0) 02/25/19 23:10 AST 30 Units/L (15-37) 02/25/19 23:10 ALT 47 Units/L (12-78) 02/25/19 23:10 Alkaline Phosphatase 65 Units/L (46-116) 02/25/19 23:10 Creatine Kinase 136 Units/L (39-308) 02/25/19 23:10 CK-MB (CK-2) 1.3 ng/mL (0-4.0) 02/25/19 23:10 CK/CKMB % Calc 1.0 % (<4) 02/25/19 23:10 Troponin I < 0.02 ng/mL (0-1.5) 02/25/19 23:10 Total Protein 7.2 g/dL (6.4-8.2) 02/25/19 23:10 Albumin 3.5 g/dL (3.4-5.0) 02/25/19 23:10 Globulin 3.7 g/dL (2.5-4.5) 02/25/19 23:10 Albumin/Globulin Ratio 0.9 Ratio (1.1-2.1) L 02/25/19 23:10 XRAY XRAY Interpreted by: Radiologist and Both (CXR: No acute cardiopulmonary changes noted.) XRAY Findings: CTA chest: No signs of PTE. Spleen enlarged with focal area hypodensity EKG Rate: 87 [place]: Normal Rhythm: NSR Block: None Opioid Opioid Risk Tool Total: 0 Total Score Risk Category: Low Risk Copyright: [place] predicting aberrant behaviors Diagnosis Discharge Problem: Chest pain, rule out acute myocardial infarction, Abnormal laboratory test, Splenic infarct, Bronchitis Dyspnea Qualifiers: Dyspnea type: dyspnea on exertion Qualified Code(s): R06.09 - Other forms of dyspnea Instructions Forms: Excuse From Work or School
--- NOTE | 2019-02-26 00:41 | RAD ---
Chest AP portable Indication: Dyspnea. Findings: There is no pneumothorax or effusion. There is no consolidation. Monitoring leads obscure detail. Impression: No acute chest process. Reported By:
--- NOTE | 2019-02-26 00:46 | CT ---
CT angiogram chest with contrast Indication: Dyspnea and elevated D-dimer Technique: Helical images through the chest after IV contrast. Coronal and sagittal reformats provided. MIP images provided. Comparison: No prior chest CT available. 08/09/2017 CT abdomen and pelvis reviewed. Findings: Review of bone windows shows no destructive osseous lesion. Limited images through the upper abdomen shows hepatic steatosis. Spleen is prominent. Wedge-shaped area of lower attenuation in the upper spleen on axial image 85 could reflect splenic infarct. There is no surrounding stranding. Chest: Aortic arch branch vessels are patent. Heart size is normal. Pulmonary artery bolus timing is suboptimal without massive central pulmonary embolic filling defect convincingly demonstrated. Segmental and subsegmental vessels are poorly evaluated. Lungs are clear without pneumothorax, effusion or consolidation. Impression: 1. Pulmonary artery bolus timing is limited. While there is no convincing massive central pulmonary embolus, segmental and subsegmental vessels are poorly evaluated. However, there are no secondary signs of PTE 2. The spleen is enlarged with a focal area of wedge-shaped hypodensity in the cranial aspect of the spleen. This could reflect acute splenic infarct in could be painful. Splenic enlargement has occurred from the prior. Follow-up to exclude underlying systemic disease or neoplasia is recommended. 3. Hepatic steatosis. Reported By:
[2019-02-26] MEDS ORDERED: DUONEB 0.5 MG/3 MG NEB ONE (01:12)
[2019-02-26] MEDS ORDERED: ROCEPHIN VIAL 1 GRAM IVP ONE (01:16)
[2019-02-26] MEDS ORDERED: ROCEPHIN VIAL 1 GRAM ONE (01:20)
[2019-02-26] MEDS ORDERED: DUONEB 0.5 MG/3 MG ONE (01:22)
[2019-02-26] MEDS ORDERED: NS 1000 ML 1,000 ML IV SCH (02:27)
[2019-02-26] MEDS ORDERED: NS 1000 ML 1,000 ML ONE (02:52)
[2019-02-26 04:00] VITALS: BMI 51.7
[2019-02-26 05:20] LABS: BASOPHILS % (AUTO) 0.3 % (0.2-1.0); EOSINOPHILS # (AUTO) 0.1 x10^3/uL (0.0-0.2); HEMATOCRIT 37.5 % (42.0-54.0); HEMOGLOBIN 12.8 g/dL (13.5-18.0); LYMPHOCYTES # (AUTO) 2.2 X10^3/uL (1.3-2.9); LYMPHOCYTES % (AUTO) 57.4 % (21.0-51.0); MEAN CORPUSCULAR HEMOGLOBIN 30.9 pg (27.0-34.0); MEAN CORPUSCULAR HGB CONC 34.2 g/dL (33.0-35.0); MEAN CORPUSCULAR VOLUME 90.3 fL (80.0-100.0); MEAN PLATELET VOLUME 8.3 fL (7.4-11.0); MONOCYTES # (AUTO) 0.2 x10^3/uL (0.3-0.8); MONOCYTES % (AUTO) 6.3 % (0.0-13.0); NEUTROPHILS # (AUTO) 1.3 x10^3/uL (2.2-4.8); PLATELET COUNT 168 X10^3/uL (150.0-450.0); RED BLOOD COUNT 4.15 X10^6/uL (4.7-6.0); RED CELL DISTRIBUTION WIDTH 14.6 % (11.6-16.5); WHITE BLOOD COUNT 3.8 X10^3/uL (3.6-10.0)
[2019-02-26 05:37] LABS: ALANINE AMINOTRANSFERASE 41 Units/L (12-78); ALBUMIN 3.2 g/dL (3.4-5.0); ALKALINE PHOSPHATASE 54 Units/L (46-116); ASPARTATE AMINO TRANSFERASE 30 Units/L (15-37); BLOOD UREA NITROGEN 11 mg/dL (7-18); CALCIUM 8.2 mg/dL (8.5-10.1); CARBON DIOXIDE 26.2 mmol/L (21-32); CHLORIDE 105 mmol/L (98-107); CHOL/HDL RATIO 5.5 (0.0-5.0); CHOLESTEROL 105 mg/dL (0-200); COR CA(FOR HYPOALB) 8.8 mg/dL (8.5-10.1); CREATININE 0.96 mg/dL (0.70-1.30); HDL CHOLESTEROL 19 mg/dL (40-60); SODIUM 141 mmol/L (136-145); TOTAL PROTEIN 6.6 g/dL (6.4-8.2); TRIGLYCERIDES 140 mg/dL (0-150); eGFR NON BLACK RACES > 60 (>60)
[2019-02-26] MEDS ORDERED: POTASSIUM CHL 40 MEQ/NS 0.45% 500 ML IV PRN (05:41)
[2019-02-26] MEDS ORDERED: K-DUR TAB 20 MEQ PO PRN (05:41)
[2019-02-26] MEDS ORDERED: KLOR-CON PO PRN (05:41)
[2019-02-26] MEDS ORDERED: POTASSIUM CHL 60 MEQ/NS 0.45% 500 ML IV PRN (05:41)
[2019-02-26] MEDS ORDERED: POTASSIUM CHLORIDE LIQ 20 MEQ UDC PO PRN (05:41)
[2019-02-26] MEDS ORDERED: K-RIDER 10 MEQ/NS 100 ML 10 MEQ/100 ML BAG IV PRN (05:41)
[2019-02-26] MEDS ORDERED: MICRO K EXTEN CAP 10 MEQ PO PRN (05:41)
[2019-02-26 05:53] LABS: CREATINE KINASE MB 1.3 ng/mL (0-4.0); TROPONIN I 0.02 ng/mL (0-1.5)
[2019-02-26] MEDS: DUONEB 0.5 MG/3 MG NEB SCH ×2 (08:43→12:07)
[2019-02-26] MEDS ORDERED: LOVENOX INJ 40 MG SYR SC SCH (09:00)
[2019-02-26] MEDS ORDERED: PEPCID TAB 20 MG PO SCH (09:00)
[2019-02-26 13:54] LABS: CKMB % 1.3 % (<4); CREATINE KINASE 107 Units/L (39-308); CREATINE KINASE MB 1.4 ng/mL (0-4.0); TROPONIN I < 0.02 ng/mL (0-1.5)
[2019-02-26 14:57] VITALS: BP 120/56
== END 2019-02-26 15:16 | disposition home or self-care (01) ==
LOC: ER 21:35 → MED/SURG 21:35
PROVIDERS: ADMIT Obstetrics & Gynecology Obstetrics; ATTEND Obstetrics & Gynecology Obstetrics
DX: R79.1 Abnormal coagulation profile; R16.1 Splenomegaly, not elsewhere classified; R07.89 Other chest pain; R06.02 Shortness of breath; K76.0 Fatty (change of) liver, not elsewhere classified; J40 Bronchitis, not specified as acute or chronic
CPT/HCPCS: 36415; 71010; 71045; 71275; 80053; 80061; 82550; 82553; 83735; 84484; 85025; 85378; 86701; 86703; 87389; 93005; 94640; 94760; 96365; 96367; 96372; 96374; 99284; A4222; G0378; J0696; J1650; J7030; J7050; J7620